=== PATIENT | female | born 1965 | race Two or more races ===

== ENCOUNTER → 2022-02-08 13:34 | Outpatient (BNVA) | payer OTHER, SELFPAY | PROVIDERS: Visit Provider Physician Assistant Medical | DX: S16.1XXA Strain of muscle, fascia and tendon at neck level, initial encounter (principal); S46.811A Strain of other muscles, fascia and tendons at shoulder and upper arm level, right arm, initial encounter; S46.911A Strain of unspecified muscle, fascia and tendon at shoulder and upper arm level, right arm, initial encounter; S63.502A Unspecified sprain of left wrist, initial encounter; S76.011A Strain of muscle, fascia and tendon of right hip, initial encounter; S39.012A Strain of muscle, fascia and tendon of lower back, initial encounter; Y04.2XXA Assault by strike against or bumped into by another person, initial encounter; W03.XXXA Other fall on same level due to collision with another person, initial encounter | CPT/HCPCS: 72170; 73502; 99204 ==

== ENCOUNTER 2022-04-18 11:27 | Emergency (ER) | payer OTHER, MEDICAID, SELFPAY ==
--- NOTE | 2022-04-18 | ECG_ITS ---
Test Reason : cp Blood Pressure : / mmHG Vent. Rate : 080 BPM Atrial Rate : 080 BPM P-R Int : 180 ms QRS Dur : 088 ms QT Int : 376 ms P-R-T Axes : 041 002 059 degrees QTc Int : 433 ms Normal sinus rhythm Cannot rule out Inferior infarct , age undetermined Cannot rule out Anterior infarct , age undetermined Abnormal ECG No previous ECGs available Referred By: Martin Johnson Electronically Signed By:EMMANUEL ROLDAN MD
--- NOTE | ~2022-04-18 | CT_ITS ---
EXAMINATION: CT ANGIOGRAM CHEST CLINICAL INFORMATION: Left-sided chest pain radiating to back. History of aortic aneurysm. COMPARISON: None TECHNIQUE: Multiple axial images were obtained through the chest after the administration of 50 mL of Omnipaque 350 intravenous contrast. Extensive vascular post-processing including two-dimensional and three-dimensional reformatted images were created and reviewed on an independent workstation. This CT examination was performed using dose optimization techniques as appropriate, variously including the following: *Automated exposure control *Adjustment of mA and/or kV according to patient size (this includes techniques or standardized protocols for targeted exams where dose is matched to indication/reason for exam; i.e. extremities or head) *Use of iterative reconstruction technique DLP: 397 mGy-cm FINDINGS: There is good opacification of the entire thoracic aorta without any evidence of dissection or aneurysm. There is a normal three-vessel branching of the arch with widely patent origins. The pulmonary artery is visualized and appears normal caliber. The heart size is normal. No pericardial effusion seen. Central trachea and the bronchi are widely patent. No abnormal size mediastinal lymph nodes or mass seen. The lungs are well-expanded with patchy dependent atelectasis both lung bases. No consolidation, mass or pulmonary nodules seen. There is no pleural effusion, thickening or calcified pleural plaques. No abnormal axillary lymph nodes seen. The chest wall is unremarkable. Imaging through the upper abdomen reveals visualized liver, spleen, adrenal glands and gallbladder appears unremarkable. Bone windows reveal no lytic or sclerotic process seen. There is mild ventral spondylosis mid dorsal spine. CT/CT angio chest aorta IMPRESSION: No evidence aortic dissection or aneurysm. The lungs are clear except for dependent minimal bibasilar atelectasis Fleischner guidelines were followed.
[2022-04-18 11:28] VITALS: BP 134/80; BP 143/96; PULSE 80; PULSE 90; RESP 20; TEMP 36.9; O2SAT 96; O2SAT 98; BMI 33.5
--- NOTE | 2022-04-18 11:37 | ED.CHESTPAIN ---
HPI - Chest Pain General Chief Complaint: Chest Pain Stated Complaint: CP SINCE LAST NIGHT,DIOPHORETIC,WEAK Time Seen by Provider: 04/18/22 11:37 Source: patient Mode of arrival: EMS Limitations: no limitations History of Present Illness HPI narrative: 57-year-old female who presents emergency department for evaluation severe right-sided chest pain. The patient states that she fell yesterday while she was at work at approximately 13:00 hours. She states that she fell forward landing on her face breaking her glasses. She states she also struck her chest and knees when she fell. She denied any head injury or loss of consciousness. She states that yesterday at around 17:00 hours she had a gradual onset of discomfort in her chest. She states that initially the pain was mild and she felt it was secondary to bruising she states the pain. She states that she woke up this morning and the pain was a sharp stabbing pain that did radiate to her back into her shoulders. The pain woke her up from sleep. The pain was 10/10. Pain was worse with breathing and with movement. The patient does have a thoracic aortic aneurysm that is followed by the thoracic surgeon, Dr. Denise. The patient believes that the aneurysm was approximately 4 [address] she gets [address] scans of the chest yearly but she has not gotten her CT scan this year. Patient states that she had a bug bite to her right elbow and completed a course of doxycycline, she still has redness swelling and pain in the area of her elbow, she states that did improve slightly after completing her course of doxycycline. She denied fever, chills, rhinorrhea, sore throat, cough. She is complaining of shortness of breath and dyspnea on exertion. She has not noticed any pain or swelling in her lower extremities and has not gone on any long trips. She states that she has had a blood clot in her legs before in the past. Related Data Previous Rx's Medication Instructions Recorded cephalexin 500 mg capsule 500 mg PO QID 7 days #28 caps 04/18/22 morphine 15 mg immediate release 15 mg PO Q4-6H PRN pain #10 tabs 04/18/22 tablet Allergies Allergy/AdvReac Type Severity Reaction Status Date / Time Penicillins Allergy Unknown Verified 04/18/22 11:37 Review of Systems Review of Systems: Yes all other systems are reviewed and are negative [facility] Past Medical History [facility] Narrative: Past medical history: DVT, thoracic aortic aneurysm, thyroid cancer. Past surgical history: Multiple orthopedic surgeries, partial thyroidectomy for thyroid cancer. Social history: She denies tobacco use. She occasionally drinks alcohol. She denies drug use. Social History Social History Advance Directives: No Advance Directives Information Provided: No Physical Exam Vital Signs: Vital Signs: Last Vital Signs Temp 98.4 F 04/18/22 11:28 Pulse 70 04/18/22 12:19 Resp 16 04/18/22 12:19 BP 134/72 04/18/22 12:19 Pulse Ox 98 04/18/22 12:19 O2 Del Method 04/18/22 12:19 BMI result Body Mass Index 33.5 Const: Other: Awake, alert, female patient, she appears to be in distress secondary to her pain. She answers all questions appropriately HEENT: Head: Yes normal to inspection, Yes normocephalic and Yes atraumatic Ears: external ears normal General nose exam: Normal external nose present Face and sinus: Yes normal facial exam Mouth: Normal oral and palatal mucosa present Throat: Yes posterior oropharynx normal Eyes: General: appearance normal, both eyes and all related structures Pupils: Equal, round and reactive pupils present Neck: Neck: Yes normal visual inspection, Yes no lymphadenopathy, Yes trachea midline and Yes supple Chest: Other: The patient does have ecchymosis to her breasts bilaterally, she has significant right-sided chest wall tenderness, she has mild left-sided chest wall tenderness Resp: Effort & Inspection: normal respiratory effort and able to speak in complete sentences Auscultation: clear to auscultation bilaterally Cardio: Rate: regular rate Rhythm: regular rhythm Heart sounds: S1 normal heart sound present, S2 normal heart sound present and no murmurs GI: Inspection: Yes normal to inspection Palpation (GI): Soft to palpation, nontender and no guarding Auscultation: normal bowel sounds : General: Yes no CVA tenderness Back/Spine/Pelvis: Back: no CVA tenderness Skin: General skin exam: no rashes or lesions noted Neuro: Cranial nerves: Yes CN's II-XII intact bilaterally and Yes Equal, round and reactive pupils present Cognition (Neuro): normal cognition Motor exam (neuro): 5/5 motor strength present throughout Extrem: Other: Patient's right elbow does appear to be slightly swollen compared to the left, she has flocculence over the olecranon bursa with erythema in this area, there is no purulent drainage noted. Psych: Appearance: grossly normal Speech and movement: Normal speech and movement present Affect: normal affect Attitude: cooperative Thought process: Normal thought process present Thought content: Normal thought content present Course Course Course Narrative: 57-year-old female who presents emergency department for evaluation of severe right-sided chest pain. The patient did have a fall at around 13:00 hours yesterday and she landed on her face chest and knees. She developed mild right-sided chest pain at around 17:00 hours yesterday. She woke up this morning with severe right-sided chest pain radiating to her right shoulder and her back. She has a known 4 cm thoracic aortic aneurysm. She has also been on antibiotics for treatment of a right olecranon bursitis which she states is not improved since completing her course of doxycycline. Patient may also have a history of DVT. Vital signs revealed an elevated blood pressure of 143/96 otherwise were unremarkable . The patient did have tenderness right greater than left with ecchymosis of her breast. She also has evidence of a right olecranon bursitis possible cellulitis. Differential includes was not limited to chest wall contusion, rib fractures, pulmonary embolism, aortic dissection. Laboratory evaluation was ordered. I also ordered a CT thoracic aortic angiogram to rule out dissection and to evaluate the patient's chest for possible other injuries from her fall. 1400: Laboratory evaluation: CBC, CMP were normal. D-dimer was below detectable limits. High sensitivity troponin I was below detectable limits. COVID-19 and influenza tests were negative. Radiology evaluation: CT chest thoracic aortic angiogram revealed no dissection and no other acute findings to explain the patient's pain. Given this negative workup, I suspect the patient's pain is related to her fall is consistent with a chest wall contusion. The patient did require 3 doses of morphine 4 mg IV in order to improve her pain. I did discuss the radiology and laboratory findings with her. Patient was advised to take Tylenol and ibuprofen for pain and for pain not relieved by these medications she was prescribed morphine. She was also given a work note. The patient does have right olecranon erythema which could be consistent with cellulitis. I do not think that she has an abscess. Patient was started on Keflex 500 mg 4 times a day for 7 days. [facility] - Chest Pain Lab Data Result diagrams: 04/18/22 12:09 04/18/22 11:39 Labs: Lab Results 04/18/22 04/18/22 04/18/22 Range/Units 11:39 12:09 12:09 WBC 5.2 (4.8-10.8) X10*3/uL RBC 4.42 (4.20-5.50) X10*6/uL Hgb 12.9 (12.0-16.0) g/dl Hct 39.4 (37.0-47.0) % MCV 89.1 (80.0-98.0) fL MCH 29.2 (27.0-33.0) pg MCHC 32.7 (31.0-35.0) g/dl RDW 13.3 (11.0-16.0) % Plt Count 235 (160-400) X10*3/uL MPV 9.1 L (9.4-12.3) fL Immature Gran % (Auto) 0.2 (0.0-0.4) % Neut % (Auto) 63.6 (45-73) % Lymph % (Auto) 26.8 (20-40) % [place] % (Auto) 7.5 (2-11) % Eos % (Auto) 1.7 (0-4) % Baso % (Auto) 0.2 (0-2) % Lymph # (Auto) 1.4 (1.2-4.9) X10*3/uL [place] # (Auto) 0.4 (0.1-1.2) X10*3/uL Eos # (Auto) 0.1 (0.0-0.4) X10*3/uL Baso # (Auto) 0.0 (0.0-0.2) X10*3/uL Abs Immat Gran (auto) 0.01 (0.00-0.03) X10*3/uL Absolute Neuts (auto) 3.3 (2.0-8.3) x10*3/uL Absolute Nucleated RBC 0.000 (0.0-0.012) X10*3/uL Nucleated RBC % (auto) 0.0 (0.0-0.2) /100WBC PT 10.9 (9.9-13.0) SEC INR 1.0 (0.9-1.1) APTT 34.5 (24.1-38.0) SEC D-Dimer High Sensitivty < 150 NG/ML Sodium 137 (135-145) mmol/L Potassium 4.6 (3.3-5.1) mmol/L Chloride 105 (96-108) mmol/L Carbon Dioxide 26 (22-29) mmol/L Anion Gap 11 L (12-20) BUN 13 (9-16) mg/dL Creatinine 0.67 (0.5-1.4) mg/dL Estim Creat Clear Calc 109.6 Estimated GFR > 60 Random Glucose 100 (60-115) mg/dL Calcium 9.5 (8.4-10.2) mg/dL Total Bilirubin 0.5 (0.0-1.0) mg/dL AST 21 (5-31) U/L ALT 18 (0-31) U/L Alkaline Phosphatase 87 (39-117) U/L Troponin I High Sens (<3.5-17.0) ng/L Total Protein 6.9 (6.5-8.0) g/dL Albumin 4.3 (3.5-5.0) g/dL Lipase 37 (8-78) U/L COVID-19 (RELL) (Negative) COVID-19 Clin Com Influenza Type A (LIZABETH) (Negative) Influenza Type B (LIZABETH) (Negative) Influenza A & B Note 04/18/22 04/18/22 04/18/22 Range/Units 12:09 12:09 12:09 WBC (4.8-10.8) X10*3/uL RBC (4.20-5.50) X10*6/uL Hgb (12.0-16.0) g/dl Hct (37.0-47.0) % MCV (80.0-98.0) fL MCH (27.0-33.0) pg MCHC (31.0-35.0) g/dl RDW (11.0-16.0) % Plt Count (160-400) X10*3/uL MPV (9.4-12.3) fL Immature Gran % (Auto) (0.0-0.4) % Neut % (Auto) (45-73) % Lymph % (Auto) (20-40) % [place] % (Auto) (2-11) % Eos % (Auto) (0-4) % Baso % (Auto) (0-2) % Lymph # (Auto) (1.2-4.9) X10*3/uL [place] # (Auto) (0.1-1.2) X10*3/uL Eos # (Auto) (0.0-0.4) X10*3/uL Baso # (Auto) (0.0-0.2) X10*3/uL Abs Immat Gran (auto) (0.00-0.03) X10*3/uL Absolute Neuts (auto) (2.0-8.3) x10*3/uL Absolute Nucleated RBC (0.0-0.012) X10*3/uL Nucleated RBC % (auto) (0.0-0.2) /100WBC PT (9.9-13.0) SEC INR (0.9-1.1) APTT (24.1-38.0) SEC D-Dimer High Sensitivty NG/ML Sodium (135-145) mmol/L Potassium (3.3-5.1) mmol/L Chloride (96-108) mmol/L Carbon Dioxide (22-29) mmol/L Anion Gap (12-20) BUN (9-16) mg/dL Creatinine (0.5-1.4) mg/dL Estim Creat Clear Calc Estimated GFR Random Glucose (60-115) mg/dL Calcium (8.4-10.2) mg/dL Total Bilirubin (0.0-1.0) mg/dL AST (5-31) U/L ALT (0-31) U/L Alkaline Phosphatase (39-117) U/L Troponin I High Sens < 3.5 (<3.5-17.0) ng/L Total Protein (6.5-8.0) g/dL Albumin (3.5-5.0) g/dL Lipase (8-78) U/L COVID-19 (RELL) Negative (Negative) COVID-19 Clin Com See Note Influenza Type A (LIZABETH) Negative (Negative) Influenza Type B (LIZABETH) Negative (Negative) Influenza A & B Note See Note ECG Data ECG #1: Interpretation: 1123: Normal sinus rhythm with a rate of 80, normal [place] interval, QRS duration QTC interval Q-wave, no ST segment elevation, no ST segment depression, no T-wave abnormalities, no PACs, no PVCs, there is no old EKG for comparison. Critical Care Time Critical Care Time Critical Care Time: Yes Total Critical Care Time: 35 Attestation: Critical Care: The patient was critically ill with a high probability of imminent or life threatening deterioration. I spent greater than 30 minutes of discontinuous time evaluating the patient,delivering critical care at the bedside, discussing and evaluating pertinent data with consultants. Critical care time does not include time spent performing separately billable procedures or teaching. Total time spent performing critical care was 35 minutes. Discharge Plan Discharge Clinical Impression: Chest wall contusion Qualifiers: Encounter type: initial encounter Laterality: right Qualified Code(s): S20.211A - Contusion of right front wall of thorax, initial encounter Bursitis, olecranon Qualifiers: Laterality: right Qualified Code(s): M70.21 - Olecranon bursitis, right elbow Fall Qualifiers: Encounter type: initial encounter Qualified Code(s): W19.XXXA - Unspecified fall, initial encounter Patient Disposition: Home, Self-Care Instructions: Rib Contusion (ED), Cellulitis (ED) Additional Instructions: The CT scan of your chest with IV contrast did not reveal a clear cause for your pain, the radiologist did not see a significant aortic aneurysm and no evidence of aortic dissection (tearing of the wall of the artery). This is reassuring Your blood work was all normal including an negative high sensitivity troponin I (marker for heart damage) and a negative high sensitivity D-dimer (a marker for blood clots to your lungs). This is very reassuring as well. Your pain is most likely secondary to contusions of the muscles were ribs of your chest wall from your fall yesterday. Take ibuprofen 200 mg pills, 3 pills every 6 hours as needed for pain. Take Tylenol (acetaminophen) 2 pills every 4-6 hours as needed for pain. For pain not relieved by ibuprofen or Tylenol take morphine 15 mg pills, 1 pill every 4 hours as needed for pain. This medication will make you sleepy, do not drive or work while taking this medication. Morphine is a narcotic medication and can be addicting. If you are concerned about addiction you can ask the pharmacist for less pills or do not get this prescription filled. You do have an infection of your right elbow bursa/skin. I am starting you on Keflex (cephalexin) 500 mg pills, 1 pill 4 times a day for 7 days. Apply a heating pad on low to this area to increase the blood flow to the area and help the healing process. Also try to keep your elbow elevated and this will also help the healing process. Follow-up with your doctor in 2 days. Please return to the emergency department if your symptoms get worse or if you develop any symptoms that are concerning to you. Please see the work note. Prescriptions: New cephalexin 500 mg capsule 500 mg PO QID 7 Days Qty: 28 0RF morphine 15 mg tablet 15 mg PO Q4-6H PRN (Reason: pain) Qty: 10 0RF Rx Instructions: The patient may ask for partial fill; Partial Fill upon patient request. Stand Alone Forms: Work/School Release
[2022-04-18] MEDS: ondansetron HCL 4 MG/2 ML VIAL IVPUSH (12:03)
[2022-04-18] MEDS: Morphine Sulfate 4 MG/ML CARTRIDGE IVPUSH ×3 (12:03→14:17)
[2022-04-18] MEDS: 0.9 % Sodium Chloride 1,000 ML 999 ML IV (12:03)
[2022-04-18] MEDS: iohexoL 350 MG/ML 100 ML INFUS..BTL 70 ML IV (12:09)
[2022-04-18 12:15] LABS: MANUAL DIFF FLAG NO
[2022-04-18 12:18] LABS: Basophils Percent Auto 0.2 % (0-2); Eosinophils Absolute Auto 0.1 X10*3/uL (0.0-0.4); Eosinophils Percent Auto 1.7 % (0-4); Hematocrit 39.4 % (37.0-47.0); Hemoglobin 12.9 g/dl (12.0-16.0); Imm Gran Abs Auto 0.01 X10*3/uL (0.00-0.03); Imm Gran Pct Auto 0.2 % (0.0-0.4); Lymphocytes Absolute Auto 1.4 X10*3/uL (1.2-4.9); Lymphocytes Percent Auto 26.8 % (20-40); Mean Corpuscular HGB Conc 32.7 g/dl (31.0-35.0); Mean Corpuscular Hemoglobin 29.2 pg (27.0-33.0); Mean Corpuscular Volume 89.1 fL (80.0-98.0); Mean Platelet Volume 9.1 fL (9.4-12.3); Monocytes Absolute Auto 0.4 X10*3/uL (0.1-1.2); Monocytes Percent Auto 7.5 % (2-11); Neutrophils Absolute Auto 3.3 x10*3/uL (2.0-8.3); Neutrophils Percent Auto 63.6 % (45-73); Platelet Count 235 X10*3/uL (160-400); Red Blood Count 4.42 X10*6/uL (4.20-5.50); Red Cell Distribution Width 13.3 % (11.0-16.0); White Blood Count 5.2 X10*3/uL (4.8-10.8)
[2022-04-18 12:19] VITALS: BP 134/72; PULSE 70; RESP 16; O2SAT 98
[2022-04-18 12:22] LABS: Prothrombin Time 10.9 SEC (9.9-13.0)
[2022-04-18 12:25] LABS: Partial Thromboplastin Time 34.5 SEC (24.1-38.0)
[2022-04-18 12:26] LABS: D Dimer High Sensitivity < 150 NG/ML
[2022-04-18 12:31] LABS: Alanine Aminotransferase 18 U/L (0-31); Albumin Level 4.3 g/dL (3.5-5.0); Alkaline Phosphatase 87 U/L (39-117); Anion Gap 11 (12-20); Aspartate Amino Transferase 21 U/L (5-31); Bilirubin Total 0.5 mg/dL (0.0-1.0); Blood Urea Nitrogen 13 mg/dL (9-16); Calcium 9.5 mg/dL (8.4-10.2); Carbon Dioxide 26 mmol/L (22-29); Chloride 105 mmol/L (96-108); Creatinine Clr Calc Pharmacy 109.6; Estimated Glomerular Filt Rate > 60; Glucose Random 100 mg/dL (60-115); Lipase 37 U/L (8-78); Potassium 4.6 mmol/L (3.3-5.1); Sodium 137 mmol/L (135-145); Total Protein 6.9 g/dL (6.5-8.0)
[2022-04-18 12:35] LABS: COVID-19 Test Negative (Negative); IDNOW Serial# 16C4AD1C; Influenza A Negative (Negative); Influenza B2 Negative (Negative)
[2022-04-18 12:40] LABS: Troponin-I High Sensitivity < 3.5 ng/L (<3.5-17.0)
[2022-04-18 14:06] VITALS: BP 125/84; PULSE 68; RESP 20; O2SAT 95
[2022-04-18 14:18] VITALS: BP 114/81; PULSE 70; RESP 17; O2SAT 97
== END 2022-04-18 14:31 | disposition home or self-care (01) ==
PROVIDERS: Emergency Provider Emergency Medicine Emergency Medical Services
DX: S20.211A Contusion of right front wall of thorax, initial encounter (principal); M70.21 Olecranon bursitis, right elbow; I71.2 Thoracic aortic aneurysm, without rupture; Z86.718 Personal history of other venous thrombosis and embolism; Z20.822 Contact with and (suspected) exposure to COVID-19; W01.0XXA Fall on same level from slipping, tripping and stumbling without subsequent striking against object, initial encounter; Y93.9 Activity, unspecified; Y92.9 Unspecified place or not applicable; Y99.0 Civilian activity done for income or pay
CPT/HCPCS: 36415; 71275; 80053; 83690; 84484; 85025; 85379; 85610; 85730; 87502; 87635; 93005; 96361; 96374; 96375; 96376; 99284; J2270; J2405; Q9967